=== PATIENT | male | born 1950 | race African-American/Black ===

== ENCOUNTER 2017-03-29 22:17 | Inpatient (IN) | payer MEDICARE ==
[2017-03-29] MEDS ORDERED: Loperamide HCl 2 MG CAP PO PRN (23:50)
[2017-03-29] MEDS ORDERED: Chloraseptic Spray 180 ml Bottle PO PRN (23:50)
[2017-03-29] MEDS ORDERED: Senokot 8.6 MG TAB PO PRN (23:50)
[2017-03-29] MEDS ORDERED: Loratadine 10 MG TAB PO PRN (23:50)
[2017-03-29] MEDS ORDERED: Eucerin (Mineral Oil/Petrolatum,White) 30 gm Jar TOP PRN (23:50)
[2017-03-29] MEDS ORDERED: Acetaminophen 325 MG TAB PO PRN (23:50)
[2017-03-29] MEDS ORDERED: Milk Of Magnesia 30 ML UDCUP PO PRN (23:50)
[2017-03-29] MEDS ORDERED: hydrALAZINE 20 MG/ML VIAL SLOW IVP PRN (23:50)
[2017-03-29] MEDS ORDERED: Diabetic Tussin 200 MG/10 ML UDCUP PO PRN (23:50)
[2017-03-29] MEDS ORDERED: Ondansetron HCl/PF 4 MG/2 ML Vial IVP PRN (23:50)
[2017-03-29] MEDS ORDERED: HYDROcodone/Acetaminophen 5/325 mg Tablet PO PRN (23:50)
[2017-03-29] MEDS ORDERED: Artificial Tears 18 DROP/0.9 ML EA EYE PRN (23:50)
[2017-03-29] MEDS ORDERED: Mag-Al 1200 mg/1200 mg/30 ML UDCUP PO PRN (23:50)
[2017-03-29] MEDS ORDERED: Ondansetron ODT 4 MG TAB PO PRN (23:50)
[2017-03-29] MEDS ORDERED: Sodium Chloride 0.65% Nasal 44 ML BOT EA NARE PRN (23:50)
[2017-03-29] MEDS ORDERED: Zolpidem Tartrate 5 MG TAB PO PRN (23:50)
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
[2017-03-30 04:15] LABS: Cardiac Risk 5.4 (Less than 4.5)
--- NOTE | 2017-03-30 07:57 | ULT ---
BILATERAL CAROTID DUPLEX ULTRASOUND: DATE: 03/30/17 HISTORY: Slurred speech. TECHNIQUE: Cason scale ultrasound with color flow and spectral Doppler imaging of the extracranial carotid artery systems performed. FINDINGS: High bifurcation of the carotid arteries is seen. There is plaque formation, predominantly in the lef t common carotid artery. The peak systolic velocity in the right ICA measures 51 cm/second with a systolic ratio of 0.28. The peak systolic velocity in the left ICA measures 43 cm/second with a systolic ratio of 0.46. Flow in both vertebral arteries remains antegrade. IMPRESSION: No evidence of hemodynamically significant stenosis. POS: BRUNILDA
[2017-03-30] MEDS ORDERED: Acetaminophen 325 MG TAB ONE (08:51)
[2017-03-30] MEDS ORDERED: Famotidine 20 MG TAB ONE (08:51)
[2017-03-30] MEDS ORDERED: Aspirin 81 mg Enteric Coated Tablet PO SCH ×3 (09:00→21:00)
--- NOTE | 2017-03-30 11:23 | MRI ---
MRI BRAIN WITHOUT CONTRAST: Date: 03/30/17 HISTORY: TIA, left-sided motor deficits, and slurred speech. Altered mental status. FINDINGS: Correlation is made with the CT scan from the previous day. No restricted diffusion is seen. No evidence of infarct, hemorrhage, midline shift, or abnormal extra -axial fluid collections are seen. The ventricular size is appropriate and the basilar cisterns are p atent. There are a few foci of T2 prolongation in the periventricular white matter consistent with mi ld chronic small vessel ischemic disease. There is fluid in the left mastoid air cells. IMPRESSION: No evidence of acute intracranial process. POS: BRUNILDA
[2017-03-30] MEDS: Hydrochlorothiazide 25 MG TAB PO SCH ×2 (12:23→17:39)
[2017-03-30] MEDS: Famotidine 20 MG TAB PO SCH ×2 (12:23→20:29)
--- NOTE | 2017-03-30 16:01 | PDOC.PN ---
- Subjective Encounter Start Date: 03/30/17 Encounter Start Time: 16:00 Subjective: wants to go home.family reoprts that speech is better but tounge devaited - Objective Resuscitation Status: Resuscitation Status FULL:Full Resuscitation MAR Reviewed: Yes Vital Signs & Weight: Vital Signs (12 hours) Temp Pulse Resp Pulse Ox 03/30/17 12:38 98.3 F 66 16 97 03/30/17 12:35 72 16 97 Weight Weight 198 lb I&O: 03/29/17 03/30/17 03/31/17 06:59 06:59 06:59 Intake Total 300 Output Total 200 Balance 100 Radiology Reviewed by me: Yes (Brain MRI-no acute changes) Phys Exam - Physical Examination Constitutional: NAD agitated HEENT: PERRLA, moist MMs, sclera anicteric, oral pharynx no lesions Neck: no nodes, no JVD, supple, full ROM Respiratory: no wheezing, no rales, no rhonchi, clear to auscultation bilateral Cardiovascular: RRR, no significant murmur Gastrointestinal: soft, non-tender, no distention, positive bowel sounds Musculoskeletal: no edema, pulses present Neurological: non-focal, normal sensation, moves all 4 limbs Tounge devauted to left.no facial droopno dysarthria Psychiatric: normal affect, A&O x 3 Skin: no rash Dx/Plan (1) tounge weakness Status: Acute (2) CKD (chronic kidney disease) Code(s): N18.9 - CHRONIC KIDNEY DISEASE, UNSPECIFIED Status: Acute (3) H/O prostate cancer Code(s): Z85.46 - PERSONAL HISTORY OF MALIGNANT NEOPLASM OF PROSTATE Status: Acute - Plan plan discussed w/ family, PT/OT, speech therapy, out of bed/ambulate, DVT proph w/SCDs HD atble. ? TIA.Pt intolerant to ASA,will not take it d/t GERD/gastritis -: awaiting Neurology recs. no CVA on MRI. -: cont statin.Cholesterol high * . Review of Systems - Review of Systems Constitutional: negative: fever, chills, sweats, weakness, malaise, other ENT: negative: Ear Pain, Ear Discharge, Nose Pain, Nose Discharge, Nose Congestion, Mouth Pain, Mouth Swelling, Throat Pain, Throat Swelling, Other Respiratory: negative: Cough, Dry, Shortness of Breath, Hemoptysis, SOB with Excertion, Pleuritic Pain, Sputum, Wheezing Cardiovascular: negative: chest pain, palpitations, orthopnea, paroxysmal nocturnal dyspnea, edema, light headedness, other Gastrointestinal: negative: Nausea, Vomiting, Abdominal Pain, Diarrhea, Constipation, Melena, Hematochezia, Other Genitourinary: negative: Dysuria, Frequency, Incontinence, Hematuria, Retention , Other Musculoskeletal: negative: Neck Pain, Shoulder Pain, Arm Pain, Back Pain, Hand Pain, Leg Pain, Foot Pain, Other Neurological: negative: Weakness, Numbness, Incoordination, Change in Speech, Confusion, Seizures, Other - Medications/Allergies Allergies/Adverse Reactions: Allergies Allergy/AdvReac Type Severity Reaction Status Date / Time aspirin Allergy Verified 03/29/17 23:53 carbamazepine [From Tegretol] Allergy Verified 03/29/17 23:53 codeine Allergy Verified 03/29/17 23:53 Medications: Current Medications Acetaminophen (Tylenol) 650 mg PO Q4H PRN PRN Reason: Headache/Fever or Pain Hydrocodone Bitart/Acetaminophen ([place] 5/325) 1 tab PO Q4H PRN PRN Reason: Moderate Pain (4-6) Al Hydroxide/Mg Hydroxide (Maalox) 30 ml PO Q6H PRN PRN Reason: Heartburn or Indigestion Artificial Tears (Tears Naturale) 0 drop EA EYE PRN PRN PRN Reason: Dry Eyes Atorvastatin Calcium (Lipitor) 10 mg PO HS [facility] Famotidine (Pepcid) 20 mg PO BID [facility] Last Admin: 03/30/17 12:23 Dose: Not Given Guaifenesin (Robitussin Sf) 200 mg PO Q4H PRN PRN Reason: Cough Hydralazine HCl (Apresoline) 10 mg SLOW IVP Q4H PRN PRN Reason: Systolic BP > 180 Hydrochlorothiazide (Hydrochlorothiazide) 12.5 mg PO DAILY [facility] Last Admin: 03/30/17 12:23 Dose: Not Given Influenza Virus Vaccine (Fluzone High-Dose Syr) 0.5 ml IM .ONCE ONE Stop: 03/30/17 21:01 Loperamide HCl (Imodium) 2 mg PO PRN PRN PRN Reason: Diarrhea/Loose Stools Loratadine (Claritin) 10 mg PO DAILYPRN PRN PRN Reason: Sinus Symptoms Magnesium Hydroxide (Milk Of Magnesium) 30 ml PO DAILYPRN PRN PRN Reason: Constipation Mineral Oil/White Petrolatum (Eucerin Cream) 0 gm TOP BIDPRN PRN PRN Reason: Dry Skin Ondansetron HCl (Zofran Odt) 4 mg PO Q6H PRN PRN Reason: Nausea/Vomiting Ondansetron HCl (Zofran) 4 mg IVP Q6H PRN PRN Reason: Nausea/Vomiting Phenol (Chloraseptic Bates 180 Ml Bot) 0 ml PO PRN PRN PRN Reason: Sore Throat Senna (Senokot) 2 tab PO HSPRN PRN PRN Reason: Constipation Sodium Chloride ([place] Nasal Bates 0.65%) 0 ml EA NARE QIDPRN PRN PRN Reason: Nasal Congestion Zolpidem Tartrate (Ambien) 5 mg PO HSPRN PRN PRN Reason: Insomnia
[2017-03-30 18:38] VITALS: BMI 28.6
[2017-03-30] MEDS ORDERED: FLU VACC TS2017-18 (>65YR) 0.5 ML SYRINGE IM ONE (21:00)
[2017-03-30] MEDS ORDERED: Atorvastatin Calcium 10 MG TAB PO SCH (21:00)
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
[2017-03-31] MEDS ORDERED: Aspirin 81 mg Enteric Coated Tablet PO SCH (09:00)
[2017-03-31] MEDS: Hydrochlorothiazide 25 MG TAB PO SCH (09:17)
[2017-03-31] MEDS: Famotidine 20 MG TAB PO SCH (09:17)
[2017-03-31 16:36] VITALS: BP 104/67; TEMP 98
--- NOTE | 2017-04-01 00:41 | DIS ---
DATE OF ADMISSION: 03/30/2017 DATE OF DISCHARGE: 03/31/2017 CONDITION AT THE TIME OF DISCHARGE: Stable and improved. DISCHARGE DIAGNOSES: 1. Tongue weakness, possible brainstem stroke. 2. Chronic kidney disease. 3. History of prostate cancer. PRIMARY CARE PHYSICIAN: The patient follows up with [facility], but does not remember th e name of his physician. DISCHARGE MEDICATIONS: Hydrochlorothiazide 25 mg daily, atorvastatin 10 mg daily, and aspirin 81 mg daily. CONSULTATIONS: Neurology, Dr. Ayden Corona. PROCEDURES DONE IN THE HOSPITAL: 1. Carotid Doppler ultrasound which is negative for any hemodynamically significant stenosis. 2. MRI of the brain which is also negative for any acute intracranial changes. No acute infarction, hemorrhage or mass. 3. Transthoracic echocardiogram which showed an ejection fraction of 50% to 55% and mildly enlarged right ventricular cavity, otherwise no valvular abnormalities. HISTORY OF PRESENT ILLNESS: Mr. Taylor is a very pleasant 66-year-old -[place] male with histor y of chronic kidney disease as well as hypertension and prostate cancer treated by radiation, who pre sented to the emergency room with complaints of some slurred speech and tongue deviation to the left. Upon presentation, his initial workup showed some tongue deviation on examination, but rest of his neurological examination was unremarkable. He was admitted for further evaluation. CT scan done at the emergency room at the outside facility was normal. Please see admission history and physical for further details. HOSPITAL COURSE: He was admitted to the stroke floor and started on aspirin and atorvastatin. The p atient did give history of intolerance to aspirin in the form of heartburn. He was started on proton pump inhibitor and he tolerated aspirin very well and conjugation with Protonix. Neurology saw the patient. His workup was unremarkable with regards to CVA, but Dr. 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 He was evaluated by PT, OT as well as speech therapist and actually because his symptoms are back to normal. He was discharged from their services. He was otherwise stable throughout the rest of his hospitalization and was discharged back home to [facility] with his primary care physician. He was seen and examined prior to discharge. PHYSICAL EXAMINATION: VITAL SIGNS: Include temperature 98, pulse 74, respirations 20, saturating 95% on room air, blood pr essure 104/67. GENERAL: No acute distress. CHEST: Clear to auscultation. HEART: Rate and rhythm regular. NEUROLOGICAL: Nonfocal. Tongue deviation has improved. Speech is not slurred. LABORATORY DATA: His serum cholesterol was elevated to 216 with LDL of 153, HDL of 40, triglycerides 116. Otherwise, he is back to his baseline and is eager to go home. Discharge plan was discussed with the patient and his who verbalized understanding.
== END 2017-03-31 18:07 | disposition home or self-care (01) | DRG 66 ==
LOC: ERS 22:17 → ERHOLD 23:09 → INTOOBSV 23:09 → 2SW 03-30 16:49 → OBSVTOIN 03-31 11:45
PROVIDERS: ADMIT Internal Medicine; ATTEND Internal Medicine
DX: I63.9 Cerebral infarction, unspecified (principal); I12.9 Hypertensive chronic kidney disease with stage 1 through stage 4 chronic kidney disease, or unspecified chronic kidney disease; N18.2 Chronic kidney disease, stage 2 (mild); Z85.46 Personal history of malignant neoplasm of prostate
CPT/HCPCS: 36415; 70551; 80061; 93306; 93880; 99285; G8978-GP-CI; G8979-GP-CI; G8980-GP-CI; G8996-GN-CJ; G8997-GN-CJ